=== PATIENT | female | born 1985 | race Caucasian/White ===

== ENCOUNTER → 2022-10-19 | Outpatient (CLI) | payer OTHER | LOC: M PAIN 13:00 | PROVIDERS: ATTEND Nurse Practitioner Family | DX: M54.6 Pain in thoracic spine (principal); M79.10 Myalgia, unspecified site; M54.50 Low back pain, unspecified; M46.1 Sacroiliitis, not elsewhere classified; J30.2 Other seasonal allergic rhinitis; Z91.013 Allergy to seafood; Z79.899 Other long term (current) drug therapy ==